=== PATIENT | male | born 1960 | race Caucasian/White ===

== ENCOUNTER 2016-05-10 13:42 | Emergency (ER) | payer OTHER, BC ==
[~2016-05-10] VITALS: Ht 170.2 cm; Wt 106.7 kg
[~2016-05-10 13:42] MED LIST: OXYC-57 PO
[2016-05-10 13:48] VITALS: TEMP 36.8; Ht 170.2 cm; Wt 106.7 kg
[2016-05-10] MEDS ORDERED: ASPI81TA28 PO (14:25)
[2016-05-10] MEDS ORDERED: POTA10CA28 PO (14:25)
[2016-05-10] MEDS ORDERED: CHOL200010 PO (14:25)
[2016-05-10] MEDS ORDERED: CEPHALEXIN MONOHYDRATE 250 MG CAP PO ONE (14:45)
[2016-05-10] MEDS ORDERED: SULFAMETHOXAZOLE/TRIMETHOPRIM DS 800/160MG TAB PO ONE (14:45)
--- NOTE | 2016-05-10 15:38 | DIAGNOSTIC IMAGING REPORT ---
RIGHT KNEE 3 VIEWS CLINICAL HISTORY: Right knee pain and swelling of the tibial tuberosity. FINDINGS: AP, crosstable lateral, and sunrise portable views of the right knee are obtained. No prior studies are available for comparison at the time of dictation. The skeletal structures are well mineralized. No fracture is seen. The joint spaces of the knee are well-maintained. 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 There is no significant joint effusion. There are at least 3 ossific densities posterior to the knee measuring up to 1.4 cm. There is pretibial soft tissue edema as well as mild prepatellar soft tissue swelling. There is only mild bony overgrowth at the anterior tibial tuberosity. No radiodense foreign body is seen. A small calcified fabella is observed. IMPRESSION: 1. Prepatellar and pretibial soft tissue edema. No radiodense foreign body is identified. 2. No acute bony abnormality is seen. 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 3. There are 3 well-corticated ossific densities posterior to the knee. These are indeterminant and may represent large calcified joint bodies within a popliteal cyst. Ultrasound could be considered for further assessment if clinically necessary. Electronically signed by: Iggy Ramirez M.D. 05/10/2016 3:36 PM Dictated Date/Time: 05/10/2016 3:33 PM
[2016-05-10 15:59] VITALS: BP 150/92; PULSE 92; O2SAT 97
[2016-05-10] MEDS ORDERED: CEPH500C PO (16:18)
[2016-05-10] MEDS ORDERED: SULF800T23 PO (16:18)
--- NOTE | 2016-05-11 16:25 | EMERGENCY ROOM VISIT NOTE ---
History First contact with patient: 14:03 Chief Complaint: KNEEPAIN Stated Complaint: RIGHT KNEE INJURY-WORK RELATED INJURY History of Present Illness The patient is a 56 year old male who presents to the Emergency Room with complaints of right knee pain worsening over the past few days. The patient has noticed significant swelling over the anterior aspect of the right lower leg. He works at [employer], and is often kneeling on to this knee. He is concerned that he may have a foreign body or infection. He has never had symptoms like this before. He is able to walk on this leg with only minimal discomfort. He has not had fever or chills. No fall or trauma. Review of Systems More than 10 systems were reviewed and otherwise negative with the exception of history of present illness. Past Medical/Surgical History No chronic medical disease Family History No pertinent family history Social History Smoking Status: Never Smoker Current/Historical Medications Scheduled Aspirin (Aspirin Ec), 81 MG PO DAILY Cephalexin Monohydrate (Keflex), 500 MG PO TID Cholecalciferol (Vitamin D), 1 CAP PO DAILY Potassium Chloride (Micro-K Ext Rel), Unknown Dose PO DAILY Sulfa/Trimethoprim (Bactrim Ds 800MG/160MG), 1 TAB PO BID Allergies Coded Allergies: No Known Allergies (Unverified , 05/10/16) Physical Exam Vital Signs Date Time Temp Pulse Resp B/P Pulse Ox O2 Delivery O2 Flow Rate FiO2 05/10/16 15:59 92 18 150/92 97 05/10/16 13:48 36.8 94 18 167/98 95 Room Air Pain Rating (0-10): 0 Physical Exam VITALS: Vitals are noted on the nurse's note and reviewed by myself. Vital signs stable. GENERAL: Well-developed, well-nourished, white male, who is in no acute distress and resting comfortably. Patient is cooperative with the examination. HEAD: Normocephalic atraumatic. HEART: Regular rate and rhythm without murmurs gallops or rubs. LUNGS: Clear to auscultation bilaterally without wheezes, rales or rhonchi. No retractions or accessory muscle use. MUSCULOSKELETAL: There is obvious swelling directly over the right anterior tibial tuberosity. The area appears soft and fluid-filled underneath. There is an overlying scab. There is only minimal patellar tenderness. No erythema around the joint. Negative Homans sign. Patient is able to flex and extend the knee against resistance. Negative anterior/posterior drawer. NEURO: Patient was alert and oriented to person place and time. CN II through XII grossly intact. Deep tendon reflexes 2+ throughout. Medical Decision & Procedures ER Provider Diagnostic Interpretation: RIGHT KNEE 3 VIEWS CLINICAL HISTORY: Right knee pain and swelling of the tibial tuberosity. FINDINGS: AP, crosstable lateral, and sunrise portable views of the right knee are obtained. No prior studies are available for comparison at the time of dictation. The skeletal structures are well mineralized. No fracture is seen. The joint spaces of the knee are well-maintained. 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 There is no significant joint effusion. There are at least 3 ossific densities posterior to the knee measuring up to 1.4 cm. There is pretibial soft tissue edema as well as mild prepatellar soft tissue swelling. There is only mild bony overgrowth at the anterior tibial tuberosity. No radiodense foreign body is seen. A small calcified fabella is observed. IMPRESSION: 1. Prepatellar and pretibial soft tissue edema. No radiodense foreign body is identified. 2. No acute bony abnormality is seen. 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 3. There are 3 well-corticated ossific densities posterior to the knee. These are indeterminant and may represent large calcified joint bodies within a popliteal cyst. Ultrasound could be considered for further assessment if clinically necessary. Medications Administered Medications (Trade) Dose Ordered Sig/Dimitry Route Start Time Stop Time Status Last Admin Dose Admin Trimethoprim/ Sulfamethoxazole (Septra Ds 800/ 160MG Tab) 1 tab NOW ONCE PO 05/10/16 14:45 05/10/16 14:46 DC 05/10/16 14:51 1 TAB Cephalexin Monohydrate (Keflex Cap) 500 mg NOW ONCE PO 05/10/16 14:45 05/10/16 14:46 DC 05/10/16 14:45 500 MG ED Course Physical exam and history were performed. Nursing notes and EMR were reviewed. Patient appears to have pain and swelling over the anterior tuberosity of the right tibia. There is an overlying scab in this area, which was concerning for possible early infection/mucous plug of an abscess. The patient certainly does not appear to have a septic joint. X-ray was obtained and does not show a foreign body. Utilizing Betadine I cleansed the area, and proceeded to de-roof the superficial scab with an 18-gauge needle. Gentle palpation of the area then resulted in a straw like fluid draining from the area. No foreign body was appreciated. The drainage does not appear to be purulent drainage, and is felt to most likely represent a bursitis. I discussed options of care with the patient. Clinically I feel that he has a bursitis over the tuberosity as the primary concern for his symptoms. This would correlate with his kneeling at work and straw-colored drainage. I have concern he may be developing an infection, which I will treat with Bactrim and Keflex. Ultimately the patient should follow with orthopedics/Workmen's Compensation for his symptoms. The patient was otherwise instructed to use NSAIDs and was invited back to the ER with any new, worsening, or concerning symptoms. The chart was completed utilizing [employer] Speech Voice Recognition Software. Grammatical errors, random word insertions, pronoun errors, and incomplete sentences are an occasional consequence of this system due to software limitations, ambient noise, and hardware issues. Any formal questions or concerns about the content, text, or information contained within the body of this dictation should be directly addressed to the provider for clarification. . Medical Decision Differential diagnosis includes, but is not limited to: Bursitis, cellulitis, abscess, foreign body, Lyme, septic joint, gout, and others Impression Primary Impression: Infrapatellar bursitis of right knee Departure Information Dispostion Home / Self-Care Condition GOOD Prescriptions Cephalexin Monohydrate (Keflex) 500 Mg Cap 500 MG PO TID for 10 Days, #30 CAP Prov: Roque Corona PA-C 05/10/16 Sulfa/Trimethoprim (Bactrim Ds 800MG/160MG) Tab 1 TAB PO BID for 10 Days, #20 TAB Prov: Roque Corona PA-C 05/10/16 Forms HOME CARE DOCUMENTATION FORM, IMPORTANT VISIT INFORMATION Patient Instructions A Signature Page, [facility] Additional Instructions You were seen and evaluated today on an emergency basis only. This is not a substitute for, or an effort to provide, complete comprehensive medical care. It is not possible to recognize and treat all injuries or illnesses in a single emergency department visit. For this reason it is recommended that you followup with Workmen's Compensation for ongoing care and evaluation. You may need to see orthopedics if symptoms persist. For baseline pain relief you may alternate ibuprofen and acetaminophen every 4 hours for pain control. Take 600 mg ibuprofen (Advil) and then 4 hours later take 1000 mg acetaminophen (Tylenol). Do not take more than 3000 mg acetaminophen in a single day. Trimethoprim-Sulfamethoxazole(Bactrim DS): Take one pill twice daily for 10 days for your skin infection. All antibiotics can cause diarrhea. If this occurs and you feel worse or it does not resolve in 1-2 days follow up with your doctor or return to the Emergency Department as this could be signs of serious underlying problems. Any medication can cause an allergic reaction, stop the pills immediately and return to the ER for rash, hives, breathing difficulties, or swelling. Cephalexin(Keflex) 500mg: Take one pill 3 times daily for 10 days for your skin infection. All antibiotics can cause diarrhea. If this occurs and you feel worse or it does not resolve in 1-2 days follow up with your doctor or return to the Emergency Department as this could be signs of serious underlying problems. Any medication can cause an allergic reaction, stop the pills immediately and return to the ER for rash, hives, breathing difficulties, or swelling. You are welcome to return to the emergency department anytime with new, worsening, or concerning symptoms.
== END 2016-05-10 16:26 | disposition home or self-care (01) ==
LOC: C.EDB 13:43 → C.EDD 16:26
DX: M70.41 Prepatellar bursitis, right knee (principal); Z79.82 Long term (current) use of aspirin